=== PATIENT | female | born 1995 | race Hispanic/Latino ===

== ENCOUNTER → 2025-07-23 | Outpatient (REF) | payer OTHER | LOC: US 08:56 | PROVIDERS: ATTEND Nurse Practitioner Family | DX: R10.13 Epigastric pain (principal) | CPT/HCPCS: 76700 ==

== ENCOUNTER → 2025-08-20 | Day surgery (SDC) | payer OTHER ==
[~2025-08-20] MED LIST: FAMOTIDINE40 MG PO; LIDOCAINE HCL 2% LOCAL INJ 5 ML SDV VIAL INJ ONE; PROPOFOL IV EMULSION 10 MG/ML 20 ML VIAL ONE
[2025-08-20] MEDS: LACTATED RINGER'S 1,000 ML ONE (08:13)
[2025-08-20 11:12] VITALS: TEMP 97.6
[2025-08-20] MEDS: ONDANSETRON HCL INJ 2MG/ML 2ML 2 MG/ML VIAL ONE (11:15)
[2025-08-20 11:25] VITALS: BP 111/82; PULSE 66; RESP 15; O2SAT 97
[2025-08-20] MEDS: METOCLOPRAMIDE HCL 10 MG/2ML VIAL ONE (12:08)
== END | disposition home or self-care (01) ==
LOC: OR 07:38
PROVIDERS: ATTEND Internal Medicine Gastroenterology
DX: K21.00 Gastro-esophageal reflux disease with esophagitis, without bleeding (principal); K31.7 Polyp of stomach and duodenum; K29.70 Gastritis, unspecified, without bleeding; K44.9 Diaphragmatic hernia without obstruction or gangrene; K59.00 Constipation, unspecified; K76.89 Other specified diseases of liver; G47.33 Obstructive sleep apnea (adult) (pediatric); E66.01 Morbid (severe) obesity due to excess calories; F41.9 Anxiety disorder, unspecified; Z68.41 Body mass index [BMI] 40.0-44.9, adult; Z87.891 Personal history of nicotine dependence
CPT/HCPCS: 43239; 43251; 81025; J2003; J2405; J2704; J2765; J7121